=== PATIENT | female | born 1980 | race African-American/Black ===

== ENCOUNTER 2016-10-30 19:06 | Emergency (ER) | payer OTHER ==
[~2016-10-30] VITALS: Ht 154.9 cm; Wt 68.0 kg
[~2016-10-30 19:06] MED LIST: CLONAZEPAM 1 MG1 M1; HYDROCODON-ACE1 EAC7 PO; KEPPRA1000 MG; LAMICTAL XR100 MG; NORCO 5-325 TA1 EACH PO; VICODIN 5-5001 EACH
[2016-10-30] MEDS ORDERED: TRAZODONE 150150 M1 PO (19:36)
[2016-10-30] MEDS ORDERED: HYDROCODONE-AP1 EAC6 PO (20:02)
[2016-10-30 20:42] VITALS: BP 135/87
== END 2016-10-30 20:43 | disposition home or self-care (01) ==
LOC: ER 19:06
DX: Z76.0 Encounter for issue of repeat prescription (principal); J45.909 Unspecified asthma, uncomplicated; Z88.6 Allergy status to analgesic agent

== ENCOUNTER 2017-08-11 17:10 | Emergency (ER) | payer OTHER ==
[~2017-08-11] VITALS: Ht 154.9 cm; Wt 73.9 kg
[~2017-08-11 17:10] MED LIST changes: -CLONAZEPAM 1 MG1 M1; +CLONAZEPAM 1 MG1 M1 PO; +HYDROCODONE-AP1 EAC6 PO; +TRAZODONE 150150 M1 PO
[2017-08-11 18:43] LABS: ABSOLUTE NEUTROPHILS 4.5 thou/uL (1.4-8.2); BASOPHILS 0.8 % (0.0-2.0); EOSINOPHILS 2.7 % (0.0-3.0); HEMATOCRIT 41.6 % (37.0-47.0); HEMOGLOBIN 14.1 gm/dL (12.0-15.0); MCV 99.9 fL (80.0-100.0); MONOCYTES 7.7 % (1.0-8.0); PLATELET COUNT 257 thou/uL (150-400); POLYS 57.8 % (36.0-66.0); RBC 4.16 mil/uL (4.20-5.00); WBC 7.9 thou/uL (4.0-11.0)
[2017-08-11 18:46] LABS: MANUAL DIFF NO
[2017-08-11 18:48] LABS: CALCIUM 9.4 mg/dL (8.5-10.1); CREATININE 0.6 mg/dL (0.6-1.0); POTASSIUM 3.8 mmol/L (3.5-5.1)
[2017-08-11 18:54] LABS: ALBUMIN 4.1 g/dL (3.4-5.0); TOTAL BILIRUBIN 0.9 mg/dL (<0.1-1.0); TOTAL PROTEIN 7.4 g/dL (6.4-8.2)
[2017-08-11] MEDS ORDERED: LIDOCARE1 EACH TOP (19:34)
[2017-08-11] MEDS ORDERED: MOBIC7.5 MG PO (19:34)
[2017-08-11] MEDS ORDERED: KEFLEX500 M1 PO (19:34)
[2017-08-11 19:40] LABS: URINE BILIRUBIN NEGATIVE (Negative); URINE BLOOD NEGATIVE (Negative); URINE COLOR YELLOW; URINE GLUCOSE-RANDOM* NEGATIVE (Negative); URINE KETONES NEGATIVE (Negative); URINE NITRITE NEGATIVE (Negative); URINE PROTEIN (DIPSTICK) NEGATIVE (Negative); URINE SPECIFIC GRAVITY <= 1.005 (1.003-1.035)
[2017-08-11] MEDS ORDERED: KEPPRA750 MG PO (19:40)
[2017-08-11] MEDS ORDERED: LIORESAL 10 MG10 MG PO (19:42)
[2017-08-11] MEDS ORDERED: ZYRTEC10 M5 PO (19:42)
[2017-08-11] MEDS ORDERED: CLOTRIMAZOLE 1%15 G1 TOP (19:51)
[2017-08-11 19:58] LABS: BACTERIA 1-9 Few /HPF (None Seen); CASTS None Seen /LPF (None Seen); CRYSTALS None Seen /LPF (None Seen); SQUAMOUS 0-3 Few /LPF (0-3); URINE RBC None Seen /HPF (0-2); URINE WBC 0-5 Rare /HPF (0-5)
[2017-08-11 20:00] VITALS: BP 132/72
== END 2017-08-11 20:00 | disposition home or self-care (01) ==
LOC: ER 17:10
PROVIDERS: Physician Assistant
DX: L03.116 Cellulitis of left lower limb (principal); L03.115 Cellulitis of right lower limb; J45.909 Unspecified asthma, uncomplicated; Z88.6 Allergy status to analgesic agent

== ENCOUNTER 2017-10-11 23:40 | Emergency (ER) | payer OTHER ==
[~2017-10-11] VITALS: Ht 154.9 cm; Wt 72.1 kg
[~2017-10-11 23:40] MED LIST changes: +CLINDAMYCIN HC150 MG PO; +CLOTRIMAZOLE 1%15 G1 TOP; +KEFLEX500 M1 PO; +KEPPRA750 MG PO; +LIDOCARE1 EACH TOP; +LIORESAL 10 MG10 MG PO; +MOBIC7.5 MG PO; +ZYRTEC10 M5 PO
[2017-10-12] MEDS ORDERED: PENICILLIN VK500 M1 PO (00:27)
[2017-10-12] MEDS ORDERED: ACETAMINOPHEN-1 EAC1 PO (00:27)
[2017-10-12 01:50] VITALS: BP 156/88
== END 2017-10-12 01:52 | disposition home or self-care (01) ==
LOC: ER 23:40
DX: K02.9 Dental caries, unspecified (principal); K04.7 Periapical abscess without sinus; J45.909 Unspecified asthma, uncomplicated; Z88.6 Allergy status to analgesic agent

== ENCOUNTER 2017-12-18 19:12 | Emergency (ER) | payer OTHER ==
[~2017-12-18] VITALS: Ht 154.9 cm; Wt 72.6 kg
--- NOTE | ~2017-12-18 | EKG ---
[place] [address] [facility] [place] [address] ELECTROCARDIOGRAM REPORT Name: SOPHIA MOURA 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
[~2017-12-18 19:12] MED LIST changes: +ACETAMINOPHEN-1 EAC1 PO; +PENICILLIN VK500 M1 PO
[2017-12-18 19:40] VITALS: BP 112/72
[2017-12-18 20:32] LABS: URINE BILIRUBIN NEGATIVE (Negative); URINE BLOOD NEGATIVE (Negative); URINE CLARITY CLEAR; URINE COLOR YELLOW; URINE GLUCOSE-RANDOM* NEGATIVE (Negative); URINE KETONES NEGATIVE (Negative); URINE LEUKOCYTES-REFLEX NEGATIVE (Negative); URINE NITRITE-REFLEX NEGATIVE (Negative); URINE PROTEIN (DIPSTICK) NEGATIVE (Negative); URINE SPECIFIC GRAVITY 1.025 (1.005-1.035); URINE UROBILINOGEN 0.2 E.U./dl (0.2-1.0)
[2017-12-18 21:07] LABS: ABSOLUTE NEUTROPHILS 4.1 thou/uL (1.4-8.2); BASOPHILS 0.9 % (0.0-2.0); EOSINOPHILS 2.4 % (0.0-3.0); HEMATOCRIT 36.7 % (37.0-47.0); HEMOGLOBIN 12.5 gm/dL (12.0-15.0); LYMPHOCYTES 45.5 % (24.0-44.0); MCH 33.6 pg (26.0-34.0); MCHC 34.1 g/dL (28.0-37.0); MCV 98.3 fL (80.0-100.0); MONOCYTES 6.5 % (1.0-8.0); PLATELET COUNT 256 thou/uL (150-400); POLYS 44.7 % (36.0-66.0); RBC 3.73 mil/uL (4.20-5.00); RDW 13.5 % (10.5-14.5); WBC 9.1 thou/uL (4.0-11.0)
[2017-12-18 21:21] LABS: ANION GAP 4 mmol/L (7-16); BUN 12 mg/dL (7-18); CALCIUM 8.8 mg/dL (8.5-10.1); CHLORIDE 108 mmol/L (98-107); CO2 29 mmol/L (21-32); CREATININE 0.7 mg/dL (0.6-1.0); GLUCOSE 105 mg/dL (74-106); POTASSIUM 3.6 mmol/L (3.5-5.1); SODIUM 141 mmol/L (136-145)
[2017-12-18 21:25] LABS: APTT 26.8 Seconds (24.5-32.8); D-DIMER 0.42 ug/mLFEU (0.19-0.50); PROTIME 9.8 Seconds (9.3-11.4)
[2017-12-18 21:28] LABS: ALBUMIN 3.3 g/dL (3.4-5.0); MAGNESIUM 1.9 mg/dL (1.8-2.4); SGOT 14 U/L (15-37); SGPT 29 U/L (30-65); TOTAL BILIRUBIN 0.2 mg/dL (<0.1-1.0); TOTAL PROTEIN 6.5 g/dL (6.4-8.2); TROPONIN-I < 0.04 ng/mL (<0.06)
[2017-12-18] MEDS ORDERED: TRAMADOL 50 MG50 MG PO (21:42)
== END 2017-12-18 22:45 | disposition home or self-care (01) ==
LOC: ER 19:12
PROVIDERS: Emergency Medicine
DX: R60.0 Localized edema (principal); J45.909 Unspecified asthma, uncomplicated; Z88.6 Allergy status to analgesic agent; Z88.8 Allergy status to other drugs, medicaments and biological substances

== ENCOUNTER 2017-12-27 00:20 | Inpatient (IN) | payer OTHER ==
[~2017-12-27] VITALS: Ht 154.9 cm; Wt 72.6 kg
--- NOTE | ~2017-12-27 | EKG ---
[address] [place] [address] ELECTROCARDIOGRAM REPORT Name: SOPHIA MOURA Room #: 404-P 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1980 Requested By: Missy Sal Order Number: [id number] MD: Reggie Howard Measurements Intervals [place] Rate: 70 P: [place]: QRS: 36 QRSD: 118 T: 4 QT: 421 QTc: 455 Interpretive Statements Baseline artifact limits rhythm interpretation Supraventricular rhythm Incomplete right bundle branch block Compared to ECG 12/18/2017 20:09:24 Recommend repeat tracing in the absence of artifact Electronically Signed On 12-27-2017 13:47:41 CDT by Reggie Howard [email or web address] <ELECTRONICALLY SIGNED> By: Rgegie Howard MD, [facility] 12/27/17 1347 0024 0024 Reggie Howard MD, [facility] /EPI
[~2017-12-27 00:20] MED LIST changes: +TRAMADOL 50 MG50 MG PO
[2017-12-27 00:22] VITALS: BP 165/85
[2017-12-27 00:37] LABS: POC CA IONIZED 4.5 mg/dL (4.5-5.3); POC CREATININE 0.6 mg/dL (0.6-1.3); POC HEMOGLOBIN 14.6 g/dL (12.0-15.0); POC POTASSIUM 3.6 mmol/L (3.5-5.1)
[2017-12-27 00:44] LABS: ABSOLUTE NEUTROPHILS 4.9 thou/uL (1.4-8.2); BASOPHILS 0.6 % (0.0-2.0); EOSINOPHILS 2.2 % (0.0-3.0); HEMATOCRIT 43.3 % (37.0-47.0); HEMOGLOBIN 14.5 gm/dL (12.0-15.0); LYMPHOCYTES 41.4 % (24.0-44.0); MCH 33.5 pg (26.0-34.0); MCHC 33.6 g/dL (28.0-37.0); MCV 99.6 fL (80.0-100.0); MONOCYTES 8.8 % (1.0-8.0); PLATELET COUNT 316 thou/uL (150-400); RBC 4.35 mil/uL (4.20-5.00); RDW 13.4 % (10.5-14.5); WBC 10.5 thou/uL (4.0-11.0)
[2017-12-27 00:51] LABS: CALCIUM 9.4 mg/dL (8.5-10.1); CREATININE 0.7 mg/dL (0.6-1.0); POTASSIUM 4.3 mmol/L (3.5-5.1)
[2017-12-27 01:29] LABS: URINE BILIRUBIN NEGATIVE (Negative); URINE BLOOD TRACE (Negative); URINE CLARITY CLEAR; URINE COLOR OTHER; URINE GLUCOSE-RANDOM* NEGATIVE (Negative); URINE KETONES NEGATIVE (Negative); URINE LEUKOCYTES-REFLEX NEGATIVE (Negative); URINE NITRITE-REFLEX NEGATIVE (Negative); URINE PROTEIN (DIPSTICK) NEGATIVE (Negative); URINE SPECIFIC GRAVITY <= 1.005 (1.005-1.035); URINE UROBILINOGEN 0.2 E.U./dl (0.2-1.0)
[2017-12-27 01:37] LABS: AMP/METHAMP Negative (Negative); BARBITURATES Negative (Negative); BENZODIAZEPINES Negative (Negative); COCAINE Negative (Negative); METHADONE Negative (Negative); OPIATES Negative (Negative); PCP POSITIVE (Negative)
[2017-12-27 03:27] VITALS: BP 116/77
[2017-12-27 07:40] VITALS: BP 123/83
[2017-12-27 16:00] VITALS: BP 130/75
[2017-12-27 20:09] VITALS: BP 114/71
[2017-12-28 04:00] VITALS: BP 109/64
[2017-12-28 08:34] VITALS: BP 112/71
[2017-12-28 14:54] VITALS: BP 112/71
== END 2017-12-28 16:33 | disposition home or self-care (01) | DRG 72 ==
LOC: ER 00:20 → EROBS 02:21 → 4N 02:21 → ENTRNSPT 12-28 15:26 → EDTRNSPTSTS 12-28 15:30 → 4N 12-28 16:33
PROVIDERS: Emergency Medicine
DX: G93.40 Encephalopathy, unspecified (principal); F16.10 Hallucinogen abuse, uncomplicated; F12.10 Cannabis abuse, uncomplicated; I48.91 Unspecified atrial fibrillation; J45.909 Unspecified asthma, uncomplicated; G62.9 Polyneuropathy, unspecified; M19.90 Unspecified osteoarthritis, unspecified site; F17.210 Nicotine dependence, cigarettes, uncomplicated; Z79.899 Other long term (current) drug therapy; Z88.6 Allergy status to analgesic agent; Z88.8 Allergy status to other drugs, medicaments and biological substances; Z28.21 Immunization not carried out because of patient refusal
CPT/HCPCS: 10790

== ENCOUNTER 2018-02-19 18:00 | Emergency (ER) | payer OTHER ==
[~2018-02-19] VITALS: Ht 154.9 cm; Wt 73.9 kg
[2018-02-19 19:22] LABS: URINE BILIRUBIN NEGATIVE (Negative); URINE BLOOD NEGATIVE (Negative); URINE CLARITY CLEAR; URINE COLOR YELLOW; URINE GLUCOSE-RANDOM* NEGATIVE (Negative); URINE KETONES NEGATIVE (Negative); URINE LEUKOCYTES NEGATIVE (Negative); URINE NITRITE NEGATIVE (Negative); URINE PROTEIN (DIPSTICK) NEGATIVE (Negative); URINE SPECIFIC GRAVITY >= 1.030 (1.005-1.035)
[2018-02-19 19:42] LABS: AMP/METHAMP Negative (Negative); BARBITURATES Negative (Negative); BENZODIAZEPINES POSITIVE (Negative); COCAINE Negative (Negative); METHADONE Negative (Negative); OPIATES POSITIVE (Negative); PCP POSITIVE (Negative)
[2018-02-19 19:47] LABS: ABSOLUTE NEUTROPHILS 3.5 thou/uL (1.4-8.2); BASOPHILS 0.8 % (0.0-2.0); EOSINOPHILS 3.4 % (0.0-3.0); HEMATOCRIT 39.3 % (37.0-47.0); HEMOGLOBIN 13.5 gm/dL (12.0-15.0); LYMPHOCYTES 43.8 % (24.0-44.0); MCH 33.2 pg (26.0-34.0); MCHC 34.4 g/dL (28.0-37.0); MCV 96.7 fL (80.0-100.0); MONOCYTES 8.6 % (1.0-8.0); PLATELET COUNT 241 thou/uL (150-400); POLYS 43.4 % (36.0-66.0); RBC 4.07 mil/uL (4.20-5.00); RDW 13.2 % (10.5-14.5); WBC 8.1 thou/uL (4.0-11.0)
[2018-02-19 19:54] LABS: CALCIUM 8.8 mg/dL (8.5-10.1); CREATININE 0.7 mg/dL (0.6-1.0); POTASSIUM 3.4 mmol/L (3.5-5.1)
== END 2018-02-19 21:45 | disposition home or self-care (01) ==
LOC: ER 18:00
PROVIDERS: Emergency Medicine
DX: G40.909 Epilepsy, unspecified, not intractable, without status epilepticus (principal); F12.10 Cannabis abuse, uncomplicated; F19.10 Other psychoactive substance abuse, uncomplicated; J45.909 Unspecified asthma, uncomplicated; Z88.6 Allergy status to analgesic agent